=== PATIENT | female | born 1950 | race Caucasian/White ===

== ENCOUNTER 2023-07-30 11:05 | Emergency (ER) | payer OTHER, MEDICARE ==
[~2023-07-30] VITALS: Ht 149.9 cm; Wt 79.8 kg
[2023-07-30 11:05] VITALS: BP_SYST 159; PULSE 63; RESP 19; TEMP 98.7; O2SAT 100
[2023-07-30 12:00] VITALS: BP_SYST 159; PULSE 63; RESP 19; TEMP 98.7; O2SAT 100
== END 2023-07-30 13:40 | disposition home or self-care (01) ==
LOC: SED 11:05
DX: M54.12 Radiculopathy, cervical region (principal); M79.622 Pain in left upper arm; I10 Essential (primary) hypertension; Z79.899 Other long term (current) drug therapy
CPT/HCPCS: 36415; 72040-TC; 84484; 93005; 99285